=== PATIENT | female | born 1990 | race African-American/Black ===

== ENCOUNTER 2021-01-03 18:49 | Emergency (ER) | payer OTHER ==
[~2021-01-03] VITALS: Ht 165.1 cm; Wt 50.0 kg
[2021-01-03] MEDS ORDERED: ACETAMINOPHEN 650MG/20.3ML UDC PO ONE (22:00)
[2021-01-04 00:08] LABS: CLARITY URINE CLOUDY (CLEAR); COLOR URINE YELLOW (YELLOW); KETONES URINE NEGATIVE (NEGATIVE); LEUKOCYTE ESTERASE URINE TRACE (NEGATIVE); NITRITE URINE NEGATIVE (NEGATIVE); OCCULT BLOOD URINE 3+ (NEGATIVE); PH URINE 7.5 (4.5-8.0); PROTEIN URINE NEGATIVE (NEGATIVE); SPECIFIC GRAVITY URINE 1.025 (1.005-1.030); UROBILINOGEN URINE 0.2 E.U./dL (0.2-1.0)
[2021-01-04 01:47] VITALS: BP 117/73
== END 2021-01-04 01:50 ==
LOC: ER 18:49
DX: S60.211A Contusion of right wrist, initial encounter (principal); R31.29 Other microscopic hematuria; F12.10 Cannabis abuse, uncomplicated; F17.210 Nicotine dependence, cigarettes, uncomplicated; Y35.893A Legal intervention involving other specified means, suspect injured, initial encounter; Y93.89 Activity, other specified; Y92.148 Other place in prison as the place of occurrence of the external cause
CPT/HCPCS: 81003; 81025; 99285

== ENCOUNTER 2021-05-08 11:00 | Emergency (ER) | payer MEDICAID, OTHER ==
[~2021-05-08] VITALS: Ht 165.1 cm; Wt 75.0 kg
[2021-05-08] MEDS ORDERED: ACETAMINOPHEN 325MG TABLET PO STA (11:32)
[2021-05-08 12:07] LABS: CLARITY URINE CLEAR (CLEAR); COLOR URINE YELLOW (YELLOW); KETONES URINE NEGATIVE (NEGATIVE); LEUKOCYTE ESTERASE URINE TRACE (NEGATIVE); NITRITE URINE NEGATIVE (NEGATIVE); OCCULT BLOOD URINE 3+ (NEGATIVE); PROTEIN URINE NEGATIVE (NEGATIVE)
[2021-05-08 12:20] LABS: BASOPHILS % 0.2 % (0.0-2.0); EOSINOPHILS % 0.7 % (0.0-5.0); HEMATOCRIT. 32.6 % (36.0-48.0); HEMOGLOBIN. 11.2 g/dL (12.0-16.0); LYMPHOCYTES % 9.8 % (20.0-50.0); MEAN CORPUSCULAR HEMOGLOBIN 31.3 pg (28.0-32.0); MEAN CORPUSCULAR VOLUME 91.3 fL (81.0-99.0); MEAN PLATELET VOLUME 9.5 fl (7.4-10.4); MONOCYTES % 8.9 % (2.0-8.0); NEUTROPHILS % 80.4 % (40.0-76.0); PLATELET 195 x1000/uL (130-400); RED BLOOD CELL COUNT 3.57 mill/uL (4.2-5.4); RED CELL DISTRIBUTION WIDTH 12.4 % (11.6-14.6)
[2021-05-08 12:33] LABS: CHLORIDE 111 mEq/L (98-107)
[2021-05-08] MEDS ORDERED: NITR-87 MT (13:52)
[2021-05-08 15:09] VITALS: BP 110/64
[2021-05-08 23:01] LABS: B-HCG QUANTITATIVE 30709 mIU/mL (<3)
== END 2021-05-08 15:46 | disposition home or self-care (01) ==
LOC: ER 11:15
DX: O26.852 Spotting complicating pregnancy, second trimester (principal); O23.42 Unspecified infection of urinary tract in pregnancy, second trimester; Z3A.15 15 weeks gestation of pregnancy
CPT/HCPCS: 36415; 76830; 76856; 80053; 81003; 81025; 84702; 85025; 86850; 86900; 99284